=== PATIENT | female | born 1965 | race African-American/Black ===

== ENCOUNTER 2024-10-12 07:53 | Emergency (ER) | payer SELFPAY | END 2024-10-12 08:34 | disposition home or self-care (01) | LOC: DL.ED 07:53 | DX: M62.830 Muscle spasm of back (principal); Z79.899 Other long term (current) drug therapy | CPT/HCPCS: 99283 ==

== ENCOUNTER 2024-10-14 05:10 | Emergency (ER) | payer SELFPAY ==
[2024-10-14] MEDS: Ketorolac 30 MG/ML SDV IM ONE (07:11)
[2024-10-14 07:38] LABS: HEMATOCRIT 32.9 % (37.0-47.0); HEMOGLOBIN 11.8 g/dL (12.0-16.0); MEAN CORPUSCULAR HEMOGLOBIN 30.1 pg (27.0-34.0); MEAN CORPUSCULAR HGB CONC 35.9 g/dL (33.0-35.0); MEAN CORPUSCULAR VOLUME 83.9 fL (80-100); PLATELET COUNT,PLT 321 10^3/uL (150-450); RED BLOOD CELL COUNT 3.92 10^6/uL (4.2-5.4)
[2024-10-14 07:53] LABS: BASOPHILS PERCENT AUTO 0.5 % (0.0-1.0); EOSINOPHILS PERCENT AUTO 1.4 % (1.0-3.0); LYMPHOCYTES PERCENT AUTO 10.9 % (20.5-50.1); MONOCYTES PERCENT AUTO 8.7 % (2-8); NEUTROPHILS PERCENT AUTO 78.5 % (42.2-75.2)
[2024-10-14 07:56] LABS: CALCIUM 9.5 mg/dL (8.5-10.1); CREATININE 1.27 mg/dL (0.55-1.02); EST CRCL DRUG DOSING (CG) 37.26 mL/min
[2024-10-14] MEDS ORDERED: NS with KCl 40mEq 1,000 ML IV SCH (09:00)
[2024-10-14 09:01] LABS: BAND PERCENT MAN 6 %; BASOPHILS PERCENT MAN 1; EOSINOPHILS PERCENT MAN 2 % (1-3); LYMPHOCYTES PERCENT MAN 15 % (20-50); METAMYELOCYTE PERCENT MAN 1; MONOCYTES PERCENT MAN 8 % (2-8); MYELOCYTE PERCENT MAN 4; SEG NEUTROPHILS PERCENT MAN 63 % (42-75)
[2024-10-14] MEDS: Iopamidol 755 Mg/ML 100 ML Bottle IVPUSH ONE (09:14)
[2024-10-14] MEDS: Potassium Chloride 100 ML IV SCH (09:19)
[2024-10-14] MEDS: Sodium Chloride 0.9% 1,000 ML IV ONE (09:20)
[2024-10-14] MEDS: VANCOmycin 2 GM in Sodium Chloride 0.9% 500 ML IV ONE (11:48)
[2024-10-14] MEDS: Piperacillin/Tazobactam 3.375 GM in Sodium Chloride 0.9% 100 ML IV ONE (11:48)
[2024-10-14] MEDS: Iopamidol 612 MG/ML 100 ML Bottle IVPUSH ONE (12:07)
[2024-10-14 12:35] LABS: LACTIC ACID 1.5 mmol/L (0.4-2.0)
[2024-10-14] MEDS ORDERED: Lactated Ringers 1,000 ML IV SCH (12:45)
[2024-10-14] MEDS: HYDROmorphone 0.5 MG/0.5 ML Syringe IVPUSH PRN (12:50)
== END 2024-10-14 14:39 ==
LOC: DL.ED 05:10
DX: R10.11 Right upper quadrant pain (principal); B99.9 Unspecified infectious disease; I10 Essential (primary) hypertension; Z79.899 Other long term (current) drug therapy
CPT/HCPCS: 36415; 71045; 71275; 72070; 74177; 80048; 83605; 84484; 85025; 85379; 87040; 87186; 96365; 96366; 96367; 96368; 96372; 96375; 99284; 99285-25; J1885; J2543; J3480; J7030; J7040; Q9967